=== PATIENT | female | born 1965 | race African-American/Black ===

== ENCOUNTER 2017-07-14 08:07 | Outpatient (CLI) | payer OTHER ==
[~2017-07-14 08:07] MED LIST: Gadobenate Dimeglumine 529 MG/1 ML (20ML VIAL) ONE
--- NOTE | 2017-07-14 11:26 | MRI ---
MRI ABDOMEN WITH AND WITHOUT CONTRAST: Date: 07/14/17 HISTORY: Abdominal pain. COMPARISON: Pelvic ultrasound dated 06/12/17. FINDINGS: The mass in the abdomen extends from the pelvis and is incompletely visualized on this examination. This measures at least 18.0 x 10.0 x 20.0 cm, although the caudal portion of the mass is not visuali zed. There appears to be an enlarged uterus with numerous fibroids, some of which have central necro sis and are at different stages of degeneration. This mass is large and causes right-sided hydronephrosis. There are two right-sided renal cysts, one of which is T2 hyperintense, and the other is T1 and T2 hypointense, suggesting old hemorrhage. The re is low grade left-sided hydronephrosis. There is some mass effect upon the IVC and draining veins. The aorta has normal contour. Spleen is enlarged measuring nearly 16.0 cm. The liver is unremarkable. There appears to be some gal lbladder sludge. Background marrow signal of the spine is normal aside from Modic Type I changes of inferior end plat e of L4 and superior end plate of L5 due to degenerative disc space disease. There are a few simple cysts of the liver. No abnormal enhancing hepatic mass. IMPRESSION: 1. Incompletely evaluated abdominal mass, likely emanating from the pelvis and corresponding to fib roid uterus. There are numerous fibroids in different stages of degeneration. 2. Moderate right and mild left-sided hydronephrosis due to the mass effect from this mass. 3. Right-sided renal cysts. 4. Small hepatic cysts. 5. Surgical consultation is advised. Hysterectomy will probably be beneficial for this patient. If there is concern, a pelvic MRI with and without contrast is recommended as this mass is incompletely evaluated. POS: OFF
== END 2017-07-14 08:08 | disposition home or self-care (01) ==
LOC: MRI 08:07
PROVIDERS: ATTEND Family Medicine
DX: R19.00 Intra-abdominal and pelvic swelling, mass and lump, unspecified site (principal); N13.30 Unspecified hydronephrosis; N28.1 Cyst of kidney, acquired; K76.89 Other specified diseases of liver
CPT/HCPCS: 74183; A9579